=== PATIENT | female | born 1975 | race Caucasian/White ===

== ENCOUNTER 2025-04-04 13:02 | Emergency (ER) | payer MEDICAID, SELFPAY ==
[2025-04-04 13:10] VITALS: BP 122/78; PULSE 82; RESP 20; TEMP 36.8; O2SAT 99; BMI 25.7
[2025-04-04 14:18] LABS: HCG,Qualitative Serum Negative
[2025-04-04 14:29] LABS: Syphilis Reactive (Nonreactive)
[2025-04-04 14:30] LABS: MHATP/TP-PA* See Sep Rpt
--- NOTE | 2025-04-04 14:36 | PD.EDFMALE ---
ED Female Urogenital RME/HPI General Chief complaint: Urogenital-Female Stated complaint: VAGINAL PAIN/BLISTERS/ITCHING Time Seen by Provider: 04/04/25 13:11 Arrival date/time: 04/04/25 13:02 49-year-old female who is currently homeless presents with concerns for vaginal sores, itching, burning Limitations: no limitations Related Data Previous Rx's ?Medication ?Instructions ?Recorded acetaminophen 500 mg capsule 1,000 mg (2 x 500 mg) PO Q8HR PRN 04/04/25 pain #30 caps doxycycline hyclate 100 mg tablet 100 mg PO BID #14 tabs 04/04/25 Allergies Allergy/AdvReac Type Severity Reaction Status Date / Time aspirin Allergy Severe RASH Verified 11/25/23 15:05 quetiapine Allergy Severe BODY Verified 11/25/23 15:05 ANAY Review of Systems Review of Systems Systems Reviewed: All systems reviewed, normal except as documented Constitutional Constitutional: Reports system reviewed and no additional complaints, except as documented, Denies fever(s) and Denies headache(s) Eyes Eyes: Reports system reviewed and no additional complaints, except as documented and Denies blurry vision ENT Ears, Nose, Mouth, and Throat: Reports system reviewed and no additional complaints, except as documented, Denies headache(s), Denies nasal congestion and Denies nasal discharge Cardiovascular Cardiovascular: Reports system reviewed and no additional complaints, except as documented, Denies chest pain and Denies dyspnea Respiratory Respiratory: Reports system reviewed and no additional complaints, except as documented, Denies chest congestion, Denies cough and Denies dyspnea Gastrointestinal Gastrointestinal: Reports system reviewed and no additional complaints, except as documented and Denies abdominal pain Genitourinary Genitourinary: Reports system reviewed and no additional complaints, except as documented, Reports genital lesions, Reports genital pruritis, Denies hematuria, Denies vaginal discharge and Reports vaginal pruritus Integumentary/Breasts Skin/Breast: Reports system reviewed and no additional complaints, except as documented and Denies rash Neurologic Neurologic: Reports system reviewed and no additional complaints, except as documented, Reports as per HPI and Denies headache(s) Past Medical History Past Medical History CARDIAC: Negative Cardiac Disorders or Congestive Heart Failure RESPIRATORY: Negative Chronic Obstructive Pulmonary Disease (COPD) or Asthma GENITOURINARY: Positive Genitourinary Disorders; Negative Renal Disease REPRODUCTIVE: Positive Previous Pregnancies ENDOCRINE: Negative Diabetes Mellitus Type 1 or Diabetes Mellitus Type 2 HEMATOLOGIC: Negative Sickle Cell Disease OTHER HISTORY: Positive Hospitalization Surgical History SURGICAL: Positive Lumpectomy Social History SMOKING STATUS: Current every day smoker ED Exam General Limitations: Present no limitations General appearance: Present alert and in no apparent distress Head Head exam: Present atraumatic Eye Eye exam: Present normal appearance, PERRL and EOMI ENT ENT exam: Present normal exam, normal oropharynx and mucous membranes moist Neck Neck exam: Present normal inspection, full ROM and trachea midline Chest Chest inspection: Present normal inspection and symmetric chest wall rise Respiratory Respiratory exam: Present normal lung sounds bilaterally Cardiovascular Cardiovascular exam: Present regular rate, normal rhythm and normal heart sounds Abdominal Exam Abdominal exam: Present soft and normal bowel sounds Genitals Female CloseUp:  1. Multiple vaginal sores/chancre Extremities Exam Extremities exam: Present normal inspection and full ROM Back Exam Back exam: Present normal inspection and full ROM Neurological Exam Neurological exam: Present alert, oriented X3 and CN II-XII intact Psychiatric Psychiatric exam: Present normal affect and normal mood Skin Skin exam: Present warm, dry, intact and normal color Course Quality Measures none Orders Category Date Time Status Chlamydia/GC/TV - PCR Stat Lab 04/04/25 Ordered HCG,Qualitative Serum Stat Lab 04/04/25 13:34 Completed MHATP/TP-PA* Stat Lab 04/04/25 13:34 Received Syphilis Stat Lab 04/04/25 13:34 Completed HYDROcodone*/APAP 5/325 [[place] 5/325] Med 04/04/25 14:44 Discontinued 1 tab PO X1 ONE PEN G [place] (Bicillin LA) [Bicillin La Inj] Med 04/04/25 14:36 Discontinued 2.4 mmu IM X1 ONE Vital Signs Vital signs: Vital Signs Temperature 98.3 F 04/04/25 13:10 Pulse Rate 82 04/04/25 13:10 Respiratory Rate 20 04/04/25 13:10 Blood Pressure 122/78 04/04/25 13:10 Pulse Oximetry (%) 99 04/04/25 13:10 Oxygen Delivery Method Room Air 04/04/25 13:10 O2 saturation 99% on room air with normal limits Urogenital - Female MDM Narrative MDM Narrative:: 49-year-old female who is currently homeless presents with concerns for vaginal sores, itching, burning On exam patient well-appearing patient does not appear ill or toxic in no acute distress On exam patient has sores to the vaginal area/chancre I suspect patient has syphilis Patient checked for GC chlamydia which is still pending Patient for syphilis syphilis came back positive but suspected Patient given Bicillin here discharge home with doxycycline I did explain to the patient she must follow-up with the PCP in the next 24 to 48 hours for further STD testing and evaluation patient states understanding Patient data External records reviewed:: [facility] previous records Clinical information provided by:: patient Social determinants that could affect healthcare access:: housing Patient has the following chronic illnesses:: Homeless How is presenting disease/condition affected by chronic disease/condition?: caused by Evaluation data The following diagnostics were reviewed and interpreted by me:: lab results Lab and/or radiology exams considered but not ordered:: Labs obtained Interpretation Summary: Reviewed by me Medications / Prescriptions Medications or Prescriptions considered but not ordered:: Given Medication administrations:: Medication Administration History Discontinued Medications Hydrocodone Bitart/Acetaminophen (Hydrocodone/Apap 5/325 Tablet) 1 tab PO X1 ONE Stop: 04/04/25 14:45 Last Admin: 04/04/25 15:03 Dose: 1 tab Documented By: CHANTEL Penicillin G Benzathine (Pen G [place] (Bicillin La) 1.2 Mmu/2 Ml Syrg) 2.4 mmu IM X1 ONE Stop: 04/04/25 14:37 Last Admin: 04/04/25 14:55 Dose: 2.4 mmu Documented By: CHANTEL Given Consultations Consultation(s) initiated? (list below): No Diagnosis Urogenital Female Differential Diagnosis: urinary tract infection, bacterial vaginosis, vaginitis and cystitis Most likely diagnosis given after review of the tests above:: Syphilis Admission Indicated Admission indicated?: not indicated Admission Request Was there a request for admission?: No Disposition Plan Disposition Plan: Discharge Discharge Attestation Discharge Attestation: The patient and all family members were given an opportunity to ask questions and understood the discharge instructions. Discharge instructions specifically effects, indications for sooner follow up or return to the emergency department, and the expected course of current diagnosis. Patient condition: Stable Discharge Plan Plan Patient Disposition: HOME (Self Care) Discharge Disposition comment: Stable Prescriptions/Referrals Prescriptions/Med Rec: New acetaminophen 500 mg capsule 1,000 mg PO Q8HR PRN (Reason: pain) Qty: 30 0RF doxycycline hyclate 100 mg tablet 100 mg PO BID Qty: 14 0RF Referrals: Vani Santiago NP [Primary Care Provider] - 04/06/25 Problem List Clinical Impression: Syphilis Patient/Caregiver Discharge Instructions Education Materials: Syphilis Additional Instructions: Please follow up with your primary care doctor in the next 24-48hrs for any worsening symptoms return here immediately Print Language: Turkish Stand Alone Forms: Luna Award Info., Patient Portal Info Letter PA/RULING MACHINE FEEDER Supervising Physician PA/RULING MACHINE FEEDER Supervising Physician: Dr stack
[2025-04-04] MEDS: PEN G BENZ (Bicillin LA) 1.2 MMU/2 ML SYRG 2.4 MMU IM (14:55)
[2025-04-04] MEDS: HYDROcodone/APAP 5/325 TABLET 1 TAB PO (15:03)
== END 2025-04-04 15:26 | disposition home or self-care (01) ==
PROVIDERS: Nurse Practitioner Primary Care; Emergency Provider Family Medicine; PCP Nurse Practitioner Women's Health
DX: A53.9 Syphilis, unspecified (principal); Z59.00 Homelessness unspecified
CPT/HCPCS: 36415; 84703; 86780; 87491; 87591; 87661; 96372; 99283; J0561; A9270

== ENCOUNTER 2025-06-22 19:55 | Emergency (ER) | payer MEDICAID, SELFPAY ==
[2025-06-22 19:55] VITALS: BMI 15.4
== END 2025-06-23 12:00 | disposition left against medical advice (07) ==
DX: Z53.21 Procedure and treatment not carried out due to patient leaving prior to being seen by health care provider (principal)
CPT/HCPCS: 99283

== ENCOUNTER 2025-07-03 22:14 | Observation (INO) | payer MEDICAID, SELFPAY ==
--- NOTE | 2025-07-03 22:26 | XR_ITS ---
Examination: CT brain head without contrast. 2-D sagittal coronal reconstructions Date and time of exam:July 03, 2025, 10:35 PM, comparison April 01, 2024 Indications: Stroke alert, onset focal neurologic deficit, slurred speech beginning 3 hours ago CTDI: vol (mGy):46.9 DLP: (mGycm):856 Technique: Multiple CT axial sections of the brain have been obtained, 5 mm slice thickness. Contrast has not been administered. 2-D sagittal, coronal reconstructions have been obtained Low dose protocols were performed. One or more of the following dose reduction techniques were used; automated exposure control, adjustment of the mA and/or KV according to patient size, use of iterative reconstruction technique. Findings: No significant ventricular enlargement. Intra-axial or extra-axial hemorrhage density is not seen. No mass effect or midline shift Basal cisterns are not remarkable. Fourth ventricle is midline. Cranial vault intact. Impression: Negative for acute hemorrhage, mass effect or midline shift
--- NOTE | 2025-07-03 22:26 | XR_ITS ---
Examination: AP chest single view Technique one AP portable upright chest single view Date and time: July 03, 2025, 1102 hrs. Indications: Chest pain today. Findings: Mild opacity in the lingular segment obscuring detail left cardiac contour Right lung clear Mild prominence left ventricle Impression: Pneumonia lingular segment left upper lobe, consider aspiration pneumonia
--- NOTE | 2025-07-03 22:26 | EDNOTE_ITS ---
Neuro Symptoms Deficit-RME/HPI General Chief Complaint: Neuro Symptoms/Deficit Stated Complaint: SLURED SPEECH, NOT THINKING STRAIGHT Time Seen by Provider: 07/03/25 22:25 Arrival date/time: 07/03/25 22:14 RME / HPI RME / HPI Narrative: 50-year-old female patient with no past medical history, admits of smoking marijuana and doing meth, patient is homeless, last use of methamphetamine was 3 days ago, was brought in by boyfriend for evaluation regarding slurring with speech, not thinking straight, and dragging the right foot. Last well-known time about 3 hours ago. Patient also complained of headache. 2 days ago patient sustained ground-level fall also due to weakness to the right of lower extremity that resolved on its own. Patient denies any neck pain. Denies any chest pain back pain or abdominal pain. No fever. Currently patient is GCS 15. Related Data Previous Rx's ?Medication ?Instructions ?Recorded acetaminophen 500 mg capsule 1,000 mg (2 x 500 mg) PO Q8HR PRN 04/04/25 pain #30 caps doxycycline hyclate 100 mg tablet 100 mg PO BID #14 ta bs 04/04/25 Allergies Allergy/AdvReac Type Severity Reaction Status Date / Time aspirin Allergy Severe RASH Verified 06/22/25 19:58 quetiapine Allergy Severe BODY Verified 06/22/25 19:58 ANAY Review of Systems Review of Systems Narrative Review of Systems: Review of system reviewed and within normal limits except mentioned in HPI ED Exam Narrative Physical exam: VITAL SIGNS: Reviewed. GENERAL APPEARANCE: Alert and interactive, follows commands, no acute distress, HEAD AND FACE: Non-traumatic. Right-sided mild facial asymmetry ENT: PERRL, pink conjunctivitis, eyelid no trauma, Mucous membrane moist. NECK: Supple, nontender, no nuchal rigidity. CHEST: No tenderness, no crepitus, no paradoxical movement, no retractions. LUNGS: Clear, well ventilated, symmetric, no rales, no wheezing, no ronchi, no stridor, good breath sounds bilaterally. HEART: Regular rate, regular rhythm, no murmur, no gallops. ABDOMEN: Soft, positive bowel sounds, nondistended, no guarding, nontender, no rebound, no masses, RECTAL: Deferred. GENITAL: Deferred. NEUROLOGICAL: Gross motor function intact sensory function intact, Appropriate for age. MUSCULOSKELETAL: low back nontender, full range of motion. EXTREMITIES: Lower extremity drifting on the right, no drifting noted on the upper extremity handgrip equal and full bilateral SKIN: Color pink, dry, no rash, no lacerations, no abrasions, no contusions. LYMPHATICS: Deferred. Course Quality Measures none Orders Category Date Time Status Bedside Blood Glucose NOW Care 07/03/25 22:26 Active COVID-19 Screening Questionnaire NOW Care 07/03/25 23:50 Active Cane Flume Feeding Machine Operator NOW Care 07/03/25 22:26 Active Continuous Pulse Oximetry NOW Care 07/03/25 22:26 Completed Decision to Admit X1 Care 07/03/25 23:50 Completed EKG (ED ONLY) *Do not use* NOW Care 07/03/25 22:26 Completed In and Out Catheter NEEDED Care 07/03/25 22:26 Active Insert IV NOW Care 07/03/25 22:26 Active NIH Stroke Scale now Care 07/03/25 22:26 Active NPO NOW Care 07/03/25 22:26 Active Nurse Swallow Screen x1 Care 07/03/25 22:26 Active Consult to Neurology / Tele-Neurology Routine Cons 07/03/25 22:[address] angio stroke protocol Stat Exams 07/03/25 22:[address] stroke protocol Stat Exams 07/03/25 22:26 Completed EKG (ED Only) Stat Exams 07/03/25 22:26 Ordered XR chest 1V portable Stat Exams 07/03/25 22:26 Completed CBC Stat Lab 07/03/25 22:24 Completed Comprehensive Metabolic Panel Stat Lab 07/03/25 22:24 Completed Drug Screen,Urine Stat Lab 07/04/25 00:41 Completed HCG Titer if Positive Stat Lab 07/03/25 22:24 Completed Magnesium Stat Lab 07/03/25 22:24 Completed Partial Thromboplastin Time Stat Lab 07/03/25 22:24 Completed Prothrombin Time with INR Stat Lab 07/03/25 22:24 Completed Troponin I Stat Lab 07/03/25 22:24 Completed Urinalysis, C/S if Indicated Stat Lab 07/04/25 00:41 Completed Urine Culture Stat Lab 07/04/25 00:41 Received Clopidogrel [Plavix] Med 07/03/25 23:01 Discontinued 300 mg PO X1 ONE Labetalol IV [Trandate IV] Med 07/03/25 22:26 Discontinued 10 mg IVP Q15M PRN Ondansetron Inj [Zofran Inj] Med 07/03/25 22:26 Active 4 mg IVP Q4HR PRN Oxygen Delivery NOW RT 07/03/25 22:26 Active Vital Signs Vital signs: Vital Signs Temperature 98.2 F 07/03/25 22:31 Pulse Rate 89 07/03/25 22:31 Respiratory Rate 18 07/03/25 22:31 Blood Pressure 140/73 H 07/03/25 22:31 Pulse Oximetry (%) 98 07/03/25 22:31 Oxygen Delivery Method Room Air 07/03/25 22:31 Neuro Symptoms / Deficit MDM Narrative MDM Narrative:: 50-year-old female patient with no past medical history, admits of smoking marijuana and doing meth, patient is homeless, last use of methamphetamine was 3 days ago, was brought in by boyfriend for evaluation regarding slurring with speech, not thinking straight, and dragging the right foot. Last well-known time about 3 hours ago. Patient also complained of headache. 2 days ago patient sustained ground-level fall also due to weakness to the right of lower extremity that resolved on its own. Patient denies any neck pain. Denies any chest pain back pain or abdominal pain. No fever. Currently patient is GCS 15. NIH score 6 I spoke with teleneurology, who advised to give patient 300 mg of Plavix x 1 p.o. Patient received Plavix 300 mg p.o. x 1 patient is not a tPA candidate at this due to last well-known time more than [address] of the head and neck, came back unremarkable CT of the head came back unremarkable laboratory workup all came out unremarkable. Discussed with the patient including admission for stroke workup. Agrees with the plan. Spoke with hospitalist, who admitted the patient. Patient data External records reviewed:: None Clinical information provided by:: patient Social determinants that could affect healthcare access:: substance use (None) Patient has the following chronic illnesses:: Homelessness, meth amphetamine abuse, marijuana abuse How is presenting disease/condition affected by chronic disease/condition?: exacerbated by Evaluation data The following diagnostics were reviewed and interpreted by me:: lab results, radiology exam(s) and EKG tracing(s) Lab and/or radiology exams considered but not ordered:: None Interpretation Summary: See results and MDM Medications / Prescriptions Medications or Prescriptions considered but not ordered:: None Medication administrations:: Medication Administration History Acetaminophen (Acetaminophen 325 Mg Tablet) 650 mg PO Q6H PRN PRN Reason: Fever >101.5 Stop: 08/03/25 00:55 Atorvastatin Calcium (Atorvastatin Calcium 20 Mg Tablet) 40 mg PO HS [facility] Stop: 08/03/25 20:59 Clopidogrel Bisulfate (Clopidogrel Bisulfate 75 Mg Tablet) 75 mg PO QDAY [facility] Stop: 08/03/25 08:59 Last Admin: 07/04/25 08:32 Dose: 75 mg Documented By: MARLENE Enoxaparin Sodium (Enoxaparin Sod Inj 40 Mg/0.4 Ml Syringe) 40 mg SC QDAY NAVEEN Stop: 07/18/25 08:59 Last Admin: 07/04/25 08:32 Dose: 40 mg Documented By: MARLENE Hydralazine HCl (Hydralazine Inj 20 Mg/Ml Vial) 10 mg IVP Q4HR PRN PRN Reason: SBP>220 Stop: 08/03/25 01:02 Magnesium Hydroxide (Milk Of Magnesia Susp 30 Ml Udc) 30 ml PO QDAY PRN; Protocol PRN Reason: CONSTIPATION Stop: 08/03/25 00:55 Ondansetron HCl (Ondansetron Inj 2 Mg/Ml Inj 2 Ml) 4 mg IVP Q4HR PRN PRN Reason: NAUSEA OR VOMITING Stop: 08/02/25 22:25 Discontinued Medications Clopidogrel Bisulfate (Clopidogrel Bisulfate 75 Mg Tablet) 300 mg PO X1 ONE Stop: 07/03/25 23:02 Last Admin: 07/03/25 23:20 Dose: 300 mg Documented By: JULIET Labetalol HCl (Labetalol Inj 5 Mg/Ml Vial 20 Ml) 10 mg IVP Q15M PRN PRN Reason: HYPER Potassium Chloride (Potassium Chloride 20 Meq Tabcr) 40 meq PO X1 ONE Stop: 07/04/25 07:56 Last Admin: 07/04/25 08:32 Dose: 40 meq Documented By: MARLENE Potassium Chloride (Potassium Chloride 20 Meq Tabcr) 40 meq PO X1 ONE Stop: 07/04/25 09:01 Last Admin: 07/04/25 09:56 Dose: 40 meq Documented By: MARLENE See MDM Consultations Consultation(s) initiated? (list below): Yes Diagnosis Neuro Differential Diagnosis: subarachnoid hemorrhage and cerebrovascular accident Most likely diagnosis given after review of the tests above:: Strokelike symptoms Admission Indicated Admission indicated?: indicated Admission Request Was there a request for admission?: Yes Admission Attestation Admission request attestation: Discussed case with [] from Hospitalist service regarding admission. Discussed patients ED course, exam findings, labs, and radiology results. The Hospitalist [agrees,declines] to accept the patient for admission. Disposition Plan Disposition Plan: Admit Discharge Plan Plan Patient Disposition: Admit Acute Care w/in Hospital Discharge Disposition comment: Stable Problem List Clinical Impression: Stroke-like symptom
--- NOTE | 2025-07-03 22:26 | XR_ITS ---
Examination: CTA carotids with intravenous contrast CTA brain, head with intravenous contrast. 2-D sagittal, coronal reconstructions. 3-D reconstructions. Exam date and time: July 03, 2025 10:37 PM Indications: Stroke alert, onset slurred speech focal neurologic deficit today CTDI: vol (mGy) 12.80 DLP: (mGycm) 470 Technique: Multiple CTA axial brain, head carotid images post intravenous contrast injection 75 cc, [id number]. 2-D sagittal, coronal reconstructions. 3-D reconstructions, 3-D post processing including vascular maximum intensity projection images. Low dose protocols were performed. One or more of the following dose reduction techniques were used; automated exposure control, adjustment of the mA and/or KV according to patient size, use of iterative reconstruction technique. Findings: No significant common carotid carotid bifurcation or internal carotid artery stenoses Codominant vertebral arteries with no critical stenoses No cerebral large vessel arterial occlusions or thrombus Impression: No significant neck arterial stenoses No cerebral large vessel arterial occlusions or thrombus
[2025-07-03 22:31] VITALS: BP 140/73; PULSE 89; RESP 18; TEMP 36.8; O2SAT 98
[2025-07-03 22:34] VITALS: PULSE 81
[2025-07-03 22:39] LABS: Basophils # (Auto) 0.1 Thou/mm3 (0.0-0.2); Basophils % (Auto) 1 % (0-2.5); Eosinophils # (Auto) 0.2 Thou/mm3 (0.0-0.5); Eosinophils % (Auto) 2 % (0-10); Hematocrit 38.9 % (36.0-46.0); Hemoglobin 13.0 g/dL (12.0-16.0); Immature Granulocytes Auto 0.05 Thou/mm3 (0.00-0.00); Lymphocytes # (Auto) 4.6 Thou/mm3 (1.0-4.8); Lymphocytes % (Auto) 42 % (10-50); Mean Corpuscular HGB Conc 33.4 g/dl (31.0-37.0); Mean Corpuscular Hemoglobin 31.0 pg (25.0-35.0); Mean Corpuscular Volume 93 fL (80-100); Monocytes # (Auto) 0.9 Thou/mm3 (0.0-0.8); Monocytes % (Auto) 8 % (0-12); Neutrophils # (Auto) 5.1 Thou/mm3 (1.8-7.7); Neutrophils % (Auto) 47 % (37-80); Nucleated Red Blood Cell # 0.00 Thou/mm3 (0.00-0.00); Nucleated Red Blood Cell % 0 /100 WBC (0); Platelet Count 323 Thou/mm3 (140-440); RDW Standard Deviation 41.9 fL (36.4-46.3); Red Blood Count 4.19 Miln/mm3 (4.00-5.20); White Blood Count 10.9 Thou/mm3 (3.6-11.0)
[2025-07-03 22:54] LABS: INR 0.9 (0.9-1.3); Partial Thromboplastin Time 26.2 Seconds (22.0-36.0); Prothrombin Time 10.3 Seconds (9.0-12.2)
[2025-07-03 22:58] LABS: Alanine Aminotransferase 28 U/L (10-49); Albumin, Serum 4.6 gm/dL (3.5-5.0); Albumin/Globulin Ratio 2.0 (1.2-2.2); Alkaline Phosphatase 65 U/L (46-116); Anion Gap 11 (7-16); Aspartate Amino Transferase 30 U/L (0-34); BUN/Creatinine Ratio 15 Ratio (12-20); Bilirubin,Total 0.4 mg/dL (0.3-1.2); Blood Urea Nitrogen 17 mg/dL (9-23); Calcium 9.9 mg/dL (8.3-10.6); Calcium (Corrected) 9.9 mg/dL (8.5-10.1); Carbon Dioxide 29.3 mMol/L (20.0-31.0); Chloride 106 mMol/L (98-107); Creatinine (Component) 1.1 mg/dL (0.6-1.3); Globulin 2.3 gm/dL (2.3-3.5); Glucose 124 mg/dL (74-106); Magnesium 2.0 mg/dL (1.6-2.6); Osmolality,Calculated 293 (275-295); Potassium 3.4 mMol/L (3.4-5.1); Sodium 146 mMol/L (136-145); Total Protein 6.9 gm/dL (5.7-8.2); Troponin I < 0.020 ng/mL (0.0-0.045); eGFR > 60 See Note
[2025-07-03 22:59] VITALS: PULSE 80; RESP 17; RESP 98; BMI 22.2
--- NOTE | 2025-07-03 22:59 | PD.TNEURO ---
Tele Neuro Consultation Consultation Date 07/03/25 Most Recent Vital Signs Last Vital Signs Temp 98.2 F 07/03/25 22:31 Pulse 81 07/03/25 22:34 Resp 18 07/03/25 22:31 BP 140/73 H 07/03/25 22:31 Pulse Ox 98 07/03/25 22:31 O2 Del Method Room Air 07/03/25 22:31 Laboratory-Coagulation Panel PT 10.3 Seconds (9.0-12.2) 07/03/25 22:24 INR 0.9 (0.9-1.3) 07/03/25 22:24 APTT 26.2 Seconds (22.0-36.0) 07/03/25 22:24 Consultation Narrative [facility] TeleNeurology Consult Services Patient Name:???Oksana Elias Date of :???1975 Identification Number:??? Date of Service:???07/03/2025 22:20:35 Diagnosis:?I63.89 - Cerebrovascular accident (CVA) due to other mechanism ([facility]) Impression: ?This is a 50 y/o RH woman who 3 days ago had a fall, did not hit her head or lose consciousness, and at that time noted that her she couldn't feel her right leg. This lasted overnight into yesterday morning and she thinks she got her feeling back before losing it again in the evening yesterday. She fell again today about 4 hours ago and thinks that her dogs made her fall but she couldn't move her right leg to get back up. She had her boyfriend bring her in to the ED. She also reports some slurred speech. She has not noticed any vision change. She is unhoused, smokes tobacco and marijuana daily, does not drink alcohol, and used crystal meth last 3 days ago in the morning. ? ?#1 Acute ischemic stroke ?#2 Right hemisensory deficit ?#3 Right upper quadrantanopia ?#4 Right lower extremity monoplegia ? ?Please admit with continuous cardiac monitoring. ?NPO pending a bedside swallow study. ?Bolus with Clopidogrel 300 mg bolus x1 and continue Clopidogrel 75 mg daily. ?Obtain a routine MRI of the brain without gadolinium. ?Obtain a TTE with bubble study. ?Obtain a lipid panel and treat with a statin to LDL < 70. ?Obtain a Hgb A1C and target interventions to A1C < 7. ? Our recommendations are outlined below. Recommendations: ? Stroke/Telemetry Floor ? Neuro Checks (Q4) ? Bedside Swallow Eval ? DVT Prophylaxis ? IV Fluids, Normal Saline ? Head of Bed 30 Degrees ? Euglycemia and Avoid Hyperthermia (PRN Acetaminophen) ? Antihypertensives PRN if Blood pressure is greater than 220/120 or there is a concern for End organ damage/contraindications for permissive HTN. If blood pressure is greater than 220/120 give labetalol PO or IV or Vasotec IV with a goal of 15% reduction in BP during the first 24 hours. Sign Out: ? Discussed with Emergency Department Provider Advanced Imaging: Advanced imaging has been ordered. Results pending. Metrics: Last Known Well: 07/03/2025 22:45:01 Dispatch Time: 07/03/2025 22:20:35 Arrival Time: 07/03/2025 22:14:00 Initial Response Time: 07/03/2025 22:33:15Symptoms: right foot numbness and weakness. Initial patient interaction: 07/03/2025 22:41:50 NIHSS Assessment Completed: 07/03/2025 22:36:50Patient is not a candidate for Thrombolytic. Thrombolytic Medical Decision: 07/03/2025 22:44:53Patient was not deemed candidate for Thrombolytic because of following reasons: LKW outside 4.[address] Head: I personally reviewed all the CT images that were available to me and it showed: no hemorrhage, hyperdense vessel sign, or definite acute ischemic changes. Primary Provider Notified of Diagnostic Impression and Management Plan on: 07/03/2025 22:59:21 History of Present Illness:Patient is a 50 year old Female. Patient was brought by private transportation with symptoms of right foot numbness and weakness. This is a 50 y/o RH woman who 3 days ago had a fall, did not hit her head or lose consciousness, and at that time noted that her she couldn't feel her right leg. This lasted overnight into yesterday morning and she thinks she got her feeling back before losing it again in the evening yesterday. She fell again today about 4 hours ago and thinks that her dogs made her fall but she couldn't move her right leg to get back up. She had her boyfriend bring her in to the ED. She also reports some slurred speech. She has not noticed any vision change. She is unhoused, smokes tobacco and marijuana daily, does not drink alcohol, and used crystal meth last 3 days ago in the morning. Past Medical History: ?There is no history of Hypertension ?There is no history of Diabetes Mellitus ?There is no history of Hyperlipidemia ?There is no history of Stroke ?There is no history of Seizures Medications: No Anticoagulant use? No Antiplatelet use Reviewed EMR for current medications Allergies:? Reviewed Description:?aspirin Social History: Smoking: Yes Alcohol Use: No Drug Use: Yes Family History: There is no family history of premature cerebrovascular disease pertinent to this consultation ROS : 14 Points Review of Systems was performed and was negative except mentioned in HPI. Past Surgical History: There Is No Surgical History Contributory To Today?s Visit Examination: BP(140/73),?Pulse(89),?Blood Glucose(126) 1A: Level of Consciousness - Alert; keenly responsive?+ 0 1B: Ask Month and Age - Both Questions Right?+ 0 1C: Blink Eyes & Squeeze Hands - Performs Both Tasks?+ 0 2: Test Horizontal Extraocular Movements - Normal?+ 0 3: Test Visual Romero - Partial Hemianopia?+ 1 4: Test Facial Palsy (Use Grimace if Obtunded) - Normal symmetry?+ 0 5A: Test Left Arm Motor Drift - No Drift for 10 Seconds?+ 0 5B: Test Right Arm Motor Drift - No Drift for 10 Seconds?+ 0 6A: Test Left Leg Motor Drift - No Drift for 5 Seconds?+ 0 6B: Test Right Leg Motor Drift - No Movement?+ 4 7: Test Limb Ataxia (FNF/Heel-Arredondo) - No Ataxia?+ 0 8: Test Sensation - Mild-Moderate Loss: Less Sharp/More Dull?+ 1 9: Test Language/Aphasia - Normal; No aphasia?+ 0 10: Test Dysarthria - Normal?+ 0 11: Test Extinction/Inattention - No abnormality?+ 0 NIHSS Score:?6 NIHSS Free Text :?right upper quadrantan Pre-Morbid Modified Greenwood Scale: 0 Points = No symptoms at all Spoke with :?ED physician This consult was conducted in real time using interactive audio and video technology. Patient was informed of the technology being used for this visit and agreed to proceed. Patient located in hospital and provider located at home/office setting. Patient is being evaluated for possible acute neurologic impairment and high probability of imminent or life-threatening deterioration. I spent total of 35 minutes providing care to this patient, including time for face to face visit via telemedicine, review of medical records, imaging studies and discussion of findings with providers, the patient and/or family. Dr Melly Reese [facility] For Inpatient follow-up with [facility] physician please call [facility] at . As we are not an outpatient service for any post hospital discharge needs please contact the hospital for assistance. If you have any questions for the [facility] physicians or need to reconsult for clinical or diagnostic changes please contact us via [facility] at . Signature :Yomi Reese
[2025-07-03] MEDS: CLOPIDOGREL BISULFATE 75 MG TABLET 300 MG PO (23:20)
--- NOTE | 2025-07-03 23:52 | PD.HHHP ---
Documentation for date of: 07/03/25 HPI - Hospitalist History of Present Illness History of Present Illness: Focal lower extremity weakness and speech difficulty. History of present illness: 50-year-old female patient with PMHx of meth/cocaine use, and homelessness brought in by boyfriend for evaluation of fogginess and right lower extremity weakness. Patient reports a fall by [place] 3 days ago while walking her dogs which resulted in significant pain that gradually improved and resolved, reports a second ground-level fall that resulted in significant right lower extremity weakness with no sensory loss. Patient denies any fever, chills, chest pain, shortness of breath, GI/urinary symptoms but complains of headache, along with continuation of fogginess causing her hard time finding words,Patient also denies any symptoms of neck/back pain. Stroke alert initiated by ED along with teleneuro consults, head CT/CTA of head and neck negative for mass, hemorrhage or stenosis. Patient is hemodynamically stable with normal labs, CXR report possible aspiration pneumonia, patient was given 1 dose of clopidogrel 300 mg at ED. Review of Systems Review of Systems Systems Reviewed: All systems reviewed, normal except as documented Past Medical History Past Medical History CARDIAC: Negative Cardiac Disorders or Congestive Heart Failure RESPIRATORY: Negative Chronic Obstructive Pulmonary Disease (COPD) or Asthma GENITOURINARY: Positive Genitourinary Disorders; Negative Renal Disease REPRODUCTIVE: Positive Previous Pregnancies ENDOCRINE: Negative Diabetes Mellitus Type 1 or Diabetes Mellitus Type 2 HEMATOLOGIC: Negative Sickle Cell Disease OTHER HISTORY: Positive Hospitalization Family History OTHER FAMILY HX: No significant family history Surgical History SURGICAL: Positive Lumpectomy Social History SMOKING STATUS: Current every day smoker SUBSTANCE USE: crack/cocaine and methamphetamine Meds Home Medications and Allergies Allergies Allergy/AdvReac Type Severity Reaction Status Date / Time aspirin Allergy Severe RASH Verified 06/22/25 19:58 quetiapine Allergy Severe BODY Verified 06/22/25 19:58 SHAKES Exam Vital Signs Temp Pulse Resp BP Pulse Ox O2 Del Method 98.2 F 80 17 140/73 H 98 Room Air 07/03/25 22:31 07/03/25 22:59 07/03/25 22:59 07/03/25 22:31 07/03/25 22:31 07/03/25 22:31 Narrative General: Dishelved, in no distress, normal mood and affect. HEENT: Normocephalic, atraumatic, anicteric, EOM intact, PERRLA Heart: RRR, no murmur or gallop. Lungs: Clear to auscultation with equal breath sounds bilaterally. Abdomen: Bowel sounds normal, no tenderness or guarding, no CVA tenderness Extremities: Sensation, circulation, motor function intact and equal in upper extremities and in LLE. Sensation/circulation intact and RLE with normal DTR, with complete lack of motor strength. Neurologic: Alert and oriented to name, place and date of , CN II-XII intact, DTRs normal Results - Hospitalist Labs Diagrams: 07/03/25 22:24 07/03/25 22:24 Labs: Short CBC 07/03/25 Range/Units 22:24 WBC 10.9 (3.6-11.0) Thou/mm3 Hgb 13.0 (12.0-16.0) g/dL Hct 38.9 (36.0-46.0) % Plt Count 323 (140-440) Thou/mm3 BMP 07/03/25 22:24 Sodium 146 H Potassium 3.4 Chloride 106 Carbon Dioxide 29.3 BUN 17 Creatinine 1.1 Glucose 124 H Calcium 9.9 Cardiac Enzymes 07/03/25 Range/Units 22:24 Troponin I < 0.020 (0.0-0.045) ng/mL Liver Function 07/03/25 Range/Units 22:24 Total Bilirubin 0.4 (0.3-1.2) mg/dL AST 30 (0-34) U/L ALT 28 (10-49) U/L Alkaline Phosphatase 65 (46-116) U/L Albumin 4.6 (3.5-5.0) gm/dL Assessment & Plan -Hospitalist Additional Assessment 50-year-old female patient with PMHx of meth/cocaine use, and homelessness brought in by boyfriend for evaluation of fogginess and right lower extremity weakness for 6 hours, patient was admitted for stroke rule out per neurorecommendation. ? #CVA workup #RLE monoplegia Patient admitted to telemetry with continuous cardiac monitoring Patient started on daily clopidogrel 75 mg and atorvastatin 40 mg. Neuro Checks every 4 Bedside Swallow Eval DVT Prophylaxis Head of Bed 30 Degrees Maintain glucose 140?180 and Avoid Hyperthermia (PRN Acetaminophen) Permissive hypertension, hydralazine/labetalol as needed for BP>220/120 F/U UToX F/U A1c, TSH F/U MRI head without contrast In-house neurology consulted, recommendations appreciated #Methamphetamine use #Marijuana use #Tobacco use Patient counseled extensively regarding recreational drug use. Reports feeling ready to quit. Referral to social sciences professor. #Pneumonia CXR read noted for possible aspiration pneumonia. Patient lacks symptoms/signs of pneumonia. Continue to monitor patient's condition and initiate further treatment as warranted Health maintenance: DVT prophylaxis: Enoxaparin 40 mg SC daily Diet: Cardiac IV access: PIV CODE STATUS: Full code Quality Measures Quality Measures stroke Suspected type of Stroke: Unknown at this time Tenecteplase given: Reason(s) Tenecteplase not given: Outside the time window and Unable to determine eligibility not given Rehab services: PT evaluation ordered and Speech Language Pathology eval ordered VTE Prophylaxis: pharmaceutical Antithrombotic by day 2:: ordered Statin ordered: <75 y/o high intensity dose Anticoagulation ordered for A-fib or flutter (current or hx): not indicated
[2025-07-04] VITALS (7 sets, daily range): BP systolic 105–135; BP diastolic 67–85; PULSE 58–76; RESP 12–21; TEMP 35.9–36.8; O2SAT 96–99; BMI 22.2
--- NOTE | 2025-07-04 | XR_ITS ---
Examination: MRI brain without intravenous contrast. Date and time of exam: July 04, 2025 0702 hrs. Indications: Stroke alert yesterday, onset focal neurologic deficit, confusion slurred speech altered mental status Technique: Multiple axial and sagittal images of the brain obtained. Siemens high-resolution 1.5 Kimberly short bore scanners utilized. Sagittal sections, T1-weighted, TR 500, TE 14, are performed. Axial sections proton-density and T2-weighted have been obtained. Inversion recovery axial images, TR 9, 260, TE 111, TI 2500. Diffusion weighted images, axial sections, TR 4800, TE 128, B value 1000 Axial sections, ADC map, TR 4800, TE 128 Findings: Enlargement of the sella turcica is not present. The optic chiasm and infundibular are not remarkable. Prepontine and interpeduncular cisterns are not enlarged. There is no localized enlargement of the medulla or isidro. Fourth ventricle and cerebellar tonsils appear normal in position. No subacute area of hemorrhage density is seen. Mass in the cerebellopontine angle region is not evident. Globes symmetrical. Orbital musculature including medial lateral rectus muscles do not exhibit abnormality. Diffusion-weighted images demonstrate no focus of restricted diffusion. Increased white matter signal not seen Mass effect upon the ventricular system is not identified. Impression: Negative for acute hemorrhage mass effect or midline shift No acute infarct. No MR findings diagnostic for demyelinating disease
--- NOTE | 2025-07-04 00:06 | PC.NURSE ---
PT ARRIVED TO ED MEG. PT STATES THAT APPROX 3 DAYS SHE TRIPPED AND FELL. EVER SENSE THE FALL SHE NOTICED RIGHT FOOT NUMBNESS. PT STATES THAT THE FOOT GOT BETTER SINCE YESTERDAY. TODAY PT STATES THAT SHE TRIPPED OVER DOG AND DEVELOPED THE RIGHT LEG WEAKNESS. PT STATES THAT SHE IS UNABLE TO MOVE RIGHT LEG AND STATES MY BRAIN ISNT ABLE TO LEFT LEG . TELE NEURO DR. MIRIAM PAREDES EVALUATED PT NIHSS COMPLETED AND CHARTED
[2025-07-04 00:12] LABS: HCG Titer if Positive Negative
--- NOTE | 2025-07-04 00:58 | ECHO_ITS ---
Transthoracic Echo Report Ht (in): 64 Wt (lb): 129 Exam Location: Echo Lab Status: Preadmit Certified Procedural Coder: Saumya Vega Indications: Procedure Performed: BP: 108 / 71 HR: 70 Technical Quality: Poor MEASUREMENTS (Male / Female) Normal Values 2D ECHO LV Diastolic Diameter PLAX 4.7 cm 4.2 - 5.9 / 3.9 - 5.3 cm LV Systolic Diameter PLAX 3.0 cm IVS Diastolic Thickness 0.7 cm 0.6 - 1.0 / 0.6 - 0.9 cm LVPW Diastolic Thickness 0.9 cm 0.6 - 1.0 / 0.6 - 0.9 cm LV Relative Wall Thickness 0.3 LVOT Diameter 2.1 cm Aortic Root Diameter 2.9 cm LA Systolic Diameter LX 3.2 cm 3.0 - 4.0 / 2.7 - 3.8 cm LV Ejection Fraction MOD 4C 53.8 % LV Cardiac Index MOD 4C 2174.7 cm?/min?m? LV Ejection Fraction 4C AL 57.5 % LV Cardiac Index 4C AL 2417.7 cm?/min?m? LA Volume Index 20.8 cm?/m? 16 - 28 cm?/m? M-MODE Aortic Root Diameter MM 2.6 cm LA Systolic Diameter MM 3.6 cm LA Ao Ratio MM 1.4 AV Cusp Separation MM 2.1 cm DOPPLER AV Peak Velocity 86.1 cm/s AV Peak Gradient 3.0 mmHg AV Mean Gradient 2.0 mmHg AV Velocity Time Integral 18.7 cm LVOT Peak Velocity 68.0 cm/s LVOT Peak Gradient 1.8 mmHg LVOT Velocity Time Integral 17.9 cm LVOT Cardiac Index 2664.6 cm?/min?m? AV Area Cont Eq vti 3.3 cm? AV Area Cont Eq pk 2.7 cm? MV Area PHT 3.3 cm? Mitral E Point Velocity 67.4 cm/s Mitral A Point Velocity 66.0 cm/s Mitral E to A Ratio 1.0 LV E' Lateral Velocity 7.9 cm/s Mitral E to LV E' Lateral Ratio 8.5 LV E' Septal Velocity 7.2 cm/s Mitral E to LV E' Septal Ratio 9.4 PV Peak Velocity 88.2 cm/s PV Peak Gradient 3.1 mmHg FINDINGS Left Ventricle Normal left ventricular size, wall thickness, systolic function with no obvious regional wall motion abnormalities. There is grade I diastolic dysfunction of the left ventricle (impaired relaxation pattern). The ejection fraction is visually estimated at 55-60 %. Right Ventricle The right ventricle is normal in size and systolic function. Left Atrium The left atrium is normal by two-dimensional, color flow and Doppler imaging with no structural abnormalities, no thrombus formation present. Right Atrium The right atrium is normal by two-dimensional imaging, color flow and Doppler imaging with no structural abnormalities, no thrombus formation present. Atrial Septum The interatrial septum appears normal with no evidence of a shunt. Aorta The aorta is normal by two-dimensional, color flow and Doppler interrogation. Mitral Valve The mitral valve is normal by two-dimensional, color flow and Doppler interrogation. There is no significant mitral valve regurgitation, stenosis or prolapse. Aortic Valve The aortic valve is trileaflet and normal by two-dimensional, color flow and Doppler interrogation. There is no significant aortic valve regurgitation. Tricuspid Valve The tricuspid valve is normal by two-dimensional, color flow and Doppler interrogation. There is trace tricuspid valve regurgitation. Pulmonic Valve The pulmonic valve is not well visualized. There is no significant pulmonic valve regurgitation. Vessels The pulmonary artery appears normal. The inferior vena cava pulmonary and hepatic veins appear normal. Pericardium The pericardium is normal by two-dimensional imaging. There is no significant pericardial effusion. CONCLUSIONS Indication: stroke with bubble study. Possible PFO cannot be excluded based on this bubble study. Will need a DEVON to confirm and rule out PFO/ASD o LA or GURPREET if clinical suspicion high for a stroke. Normal LV size and wall thickness. Estimated EF at 55-60 %. Grade I diastolic dysfunction. Normal RV size and systolic function. Trace TR. and MR. No pericardial effusion and IVC normal Jaziel Padilla (Electronically Signed) Final Date: 05 July 2025 16:08
[2025-07-04 01:02] LABS: Collection Type, Urine Clean Catch
[2025-07-04 01:23] LABS: Amphetamine/Methamp Scrn,U Positive (Negative); Barbiturate Screen,Urine Negative (Negative); Benzodiazepines Screen,Urine Negative (Negative); Benzoylecgonine Screen, Ur Negative (Negative); Fentanyl Screen,Urine Negative (Negative); Opiate Screen,Urine Negative (Negative); THC Screen,Urine Positive (Negative)
[2025-07-04 01:35] LABS: Bilirubin,Urine Negative (Negative); Blood,Urine Negative (Negative); Clarity,Urine Clear (Clear/Hazy); Color,Urine Lt-Yellow (Lt Yel-Yel); Glucose, Urine Negative (Negative); Ketones,Urine Negative (Negative); Leukocyte Esterase,Urine Positive (Negative); Nitrite,Urine Negative (Negative); PH,Urine 6.0 (5.0-7.0); Protein,Urine Trace (Neg - Trace); RBC,Urine 3 /hpf (0-3); Squamous Epithelial Cell,Urine 2 /hpf (0-5); Urobilinogen,Urine Negative mg/dL (0.0-1.0); WBC,Urine 47 /hpf (0-5)
[2025-07-04 01:38] LABS: Culture Indicated,Urine Yes; Specific Gravity,Urine 1.015 (1.001-1.035)
[2025-07-04 05:46] LABS: Basophils # (Auto) 0.1 Thou/mm3 (0.0-0.2); Basophils % (Auto) 1 % (0-2.5); Eosinophils # (Auto) 0.3 Thou/mm3 (0.0-0.5); Eosinophils % (Auto) 3 % (0-10); Hematocrit 38.9 % (36.0-46.0); Hemoglobin 13.0 g/dL (12.0-16.0); Immature Granulocytes Auto 0.02 Thou/mm3 (0.00-0.00); Lymphocytes # (Auto) 4.4 Thou/mm3 (1.0-4.8); Lymphocytes % (Auto) 52 % (10-50); Mean Corpuscular HGB Conc 33.4 g/dl (31.0-37.0); Mean Corpuscular Hemoglobin 31.3 pg (25.0-35.0); Mean Corpuscular Volume 94 fL (80-100); Monocytes # (Auto) 0.7 Thou/mm3 (0.0-0.8); Monocytes % (Auto) 9 % (0-12); Neutrophils # (Auto) 3.1 Thou/mm3 (1.8-7.7); Neutrophils % (Auto) 36 % (37-80); Nucleated Red Blood Cell # 0.00 Thou/mm3 (0.00-0.00); Nucleated Red Blood Cell % 0 /100 WBC (0); Platelet Count 266 Thou/mm3 (140-440); RDW Standard Deviation 43.3 fL (36.4-46.3); Red Blood Count 4.15 Miln/mm3 (4.00-5.20); White Blood Count 8.6 Thou/mm3 (3.6-11.0)
[2025-07-04 05:59] LABS: Anion Gap 11 (7-16); BUN/Creatinine Ratio 10 Ratio (12-20); Blood Urea Nitrogen 9 mg/dL (9-23); Calcium 9.2 mg/dL (8.3-10.6); Carbon Dioxide 27.0 mMol/L (20.0-31.0); Cardiac Risk Estimate 5.1 RATIO (3.7-5.6); Chloride 105 mMol/L (98-107); Cholesterol 203 mg/dL (132-200); Creatinine (Component) 0.9 mg/dL (0.6-1.3); Estimated Creatinine Clearance 66.0 mL/min (>60); Glucose 142 mg/dL (74-106); HDL Cholesterol 40 mg/dL (40-60); LDL Cholesterol,Calculated 140 mg/dL (0-130); Osmolality,Calculated 285 (275-295); Potassium 3.0 mMol/L (3.4-5.1); Sodium 143 mMol/L (136-145); Thyroid Stimulating Hormone 2.86 uIU/mL (0.55-4.78); Triglycerides 115 mg/dL (30-150); eGFR > 60 See Note
[2025-07-04 06:24] LABS: Glucose Estimated Average 114 mg/dL (80-131); Hemoglobin A1C 5.6 % Hgb (4.8-6.0)
[2025-07-04] MEDS: ENOXAPARIN SOD INJ 40 MG/0.4 ML SYRINGE SC (08:32)
[2025-07-04] MEDS: CLOPIDOGREL BISULFATE 75 MG TABLET PO (08:32)
--- NOTE | 2025-07-04 13:39 | ESPR_ITS ---
Documentation for date of: 07/04/25 Subjective Subjective Interval history: Patient examined at bedside. Vitals are stable, labs significant for hypokalemia potassium 3.0. Repleted as needed. Risk stratification for stroke including A1c normal 5.6 TSH normal 2.86, cholesterol 203. Patient states that she is feeling much better since yesterday with resolution of symptoms. Further workup for stroke including MRI brain negative for any acute findings. Continue Plavix and statin while neuro recommendations are pending. Patient is currently homeless without source of income at this time. 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 Counseled on importance of polysubstance abuse cessation and offered resources for any aid. Physical therapy assessment and final neurology recommendations are pending. Anticipate discharge next 24 hours. Exam Vital Signs Temp Pulse Resp BP Pulse Ox O2 Del Method 97.6 F 69 21 H 107/67 97 Room Air 07/04/25 12:00 07/04/25 12:07/04/25 12:00 07/04/25 12:00 07/04/25 12:07/04/25 12:00 Narrative Exam General: Alert and oriented x3. No acute distress, cooperative HEENT: NCAT, No JVD noted. Mucosa moist. Pupils are equal and reactive to light bilaterally Cardiovascular: Normal S1 and S2. Regular rate and rhythm. Respiratory: Lungs are clear to auscultation bilaterally. No wheezing or crackles heard. Abdomen: Soft, nontender, not distended, normal bowel sounds. Skin: Warm to touch, dry, no rashes noted Musculoskeletal: No gross injuries. Able to move all 4 extremities. No pitting edema Neuro: Alert and oriented x3. No focal neuro deficits. Psych: Normal affect and mood Objective Labs 07/05/25 04:53 07/05/25 04:53 Labs: Laboratory Results - last 24 hr 07/03/25 07/04/25 07/04/25 22:24 00:41 04:41 WBC 10.9 8.6 RBC 4.19 4.15 Hgb 13.0 13.0 Hct 38.9 38.9 MCV 93 94 MCH 31.0 31.3 MCHC 33.4 33.4 RDW Std Deviation 41.9 43.3 Plt Count 323 266 D Neut % (Auto) 47 36 L Lymph % (Auto) 42 52 H [place] % (Auto) 8 9 Eos % (Auto) 2 3 Baso % (Auto) 1 1 Neut # (Auto) 5.1 3.1 Lymph # (Auto) 4.6 4.4 [place] # (Auto) 0.9 H 0.7 Eos # (Auto) 0.2 0.3 Baso # (Auto) 0.1 0.1 Immature Gran # (Auto) 0.05 H 0.02 H Absolute Nucleated RBC 0.00 0.00 Immature Gran % 1 H 0 Nucleated RBC % 0 0 PT 10.3 INR 0.9 APTT 26.2 Sodium 146 H 143 Potassium 3.4 3.0 L Chloride 106 105 Carbon Dioxide 29.3 27.0 Anion Gap 11 11 BUN 17 9 Creatinine 1.1 0.9 Estim Creat Clear Calc Not Performed. 66.0 eGFR > 60 > 60 BUN/Creatinine Ratio 15 10 L Glucose [address] Glu mg/dL 114 Hemoglobin A1c 5.6 Calculated Osmolality 293 285 Calcium 9.9 9.2 Corrected Calcium 9.9 Magnesium 2.0 Total Bilirubin 0.4 AST 30 ALT 28 Alkaline Phosphatase 65 Troponin I < 0.020 Total Protein 6.9 Albumin 4.6 Globulin 2.3 Albumin/Globulin Ratio 2.0 Triglycerides 115 Cholesterol 203 H LDL Cholesterol, Calc 140 H HDL Cholesterol 40 Cholesterol/HDL Ratio 5.1 TSH 2.86 Ur Collection Type Clean Catch Urine Color Lt-Yellow Urine Clarity Clear Urine pH 6.0 Ur Specific [place] 1.015 Urine Protein Trace Urine Glucose (UA) Negative Urine Ketones Negative Urine Blood Negative Urine Nitrite Negative Urine Bilirubin Negative Urine Urobilinogen (Auto) Negative Ur Leukocyte Esterase Positive Urine RBC 3 Urine WBC 47 H Ur Squamous Epith Cells 2 Urine Bacteria None Ur Culture Indicated? Yes Urine Opiates Screen Negative Urine Fentanyl Screen Negative Ur Barbiturates Screen Negative U Amphetamin/Meth Scrn Positive A U Benzodiazepines Scrn Negative U Cocaine Metab Screen Negative U Marijuana (THC) Screen Positive A HCG (Qual) Negative Quality Measures Quality Measures none Assessment & Plan Assessment Current Active Medications: Generic Name Dose Route Start Last Admin Trade Name Freq PRN Reason Stop Dose Admin Acetaminophen 650 mg 07/04/25 00:56 Acetaminophen 325 Mg Tablet PO 08/03/25 00:55 Q6H PRN Fever >101.5 Atorvastatin Calcium 40 mg 07/04/25 21:00 Atorvastatin Calcium 20 Mg Tablet PO 08/03/25 20:59 HS NAVEEN Clopidogrel Bisulfate 75 mg 07/04/25 09:00 07/04/25 08:32 Clopidogrel Bisulfate 75 Mg Tablet PO 08/03/25 08:59 75 mg QDAY NAVEEN Administration Enoxaparin Sodium 40 mg 07/04/25 09:00 07/04/25 08:32 Enoxaparin Sod Inj 40 Mg/0.4 Ml Syringe SC 07/18/25 08:59 40 mg QDAY NAVEEN Administration Hydralazine HCl 10 mg 07/04/25 01:03 Hydralazine Inj 20 Mg/Ml Vial IVP 08/03/25 01:02 Q4HR PRN SBP>220 Magnesium Hydroxide 30 ml 07/04/25 00:56 Milk Of Magnesia Susp 30 Ml Udc PO 08/03/25 00:55 QDAY PRN CONSTIPATION Protocol Ondansetron HCl 4 mg 07/03/25 22:26 Ondansetron Inj 2 Mg/Ml Inj 2 Ml IVP 08/02/25 22:25 Q4HR PRN NAUSEA OR VOMITING Plan 50-year-old female patient with PMHx of meth/cocaine use, and homelessness brought in by boyfriend for evaluation of fogginess and right lower extremity weakness for 6 hours, patient was admitted for stroke rule out per neurorecommendations. #LE weakness Less likely stroke as no evidence on imaging. Possibly TIA vs heat, drug use, dehydration. #Stroke-like symptoms Initially presenting with right lower extremity weakness and some confusion. She was brought in by her boyfriend. Patient is homeless and could have been dehydrated with long-term heat exposure causing this weakness. U tox also positive for methamphetamines and cocaine. MRI/CT/CTA of head and neck negative for mass, hemorrhage or stenosis. A1c normal 5.6 TSH normal 2.86, cholesterol 203. - In-house neurology recommendations pending ? Continue aspirin and Plavix ? Physical therapy assessment pending -Maintain glucose 140?180 and Avoid Hyperthermia (PRN Acetaminophen) # Polysubstance drug use #Methamphetamine use #Marijuana use #Tobacco use #Homeslessnes -Patient counseled extensively regarding recreational drug use. -Reports feeling ready to quit. -Referral to social scientist. -offered other sources of aid for quitting #Syphilis, unspecified Syphilis serology resulted reactive on 04/04/2025. She came to the ED and received penicillin G2 400,000 units IM injection. Was sent home with p.o. doxycycline 100 mg twice daily. Unaware patient fully completed course for discharge at that time. -Follow up outpatient to repeat titers Health maintenance: Dispo: tele for CVA rule out FEN: regular DVT prophylaxis: Enoxaparin 40 dily CODE STATUS: Full code The patient's management plan was discussed with my attending physician Dr. Teran. Jenifer Sykes, PGY-2 Attending Provider Attestation/Addendum I have examined the patient, reviewed labs and imaging findings, discussed the case with the resident(s), and reviewed entered orders. I agree with the plan of care as outlined in this note, with these additional summaries/recommendations: Patient seen at bedside. Patient admitted overnight for CVA rule out. Today at bedside she reports all her symptoms have resolved and no longer endorses right lower extremity weakness. Discussed that I would still like her to be seen by physical therapy. MRI brain showed no acute CVA. Symptoms likely related to drug intoxication versus transient ischemic attack. Patient was placed on Plavix overnight by teleneurology. Patient to be evaluated by in-house neurology and recommendations appreciated. Patient was counseled extensively on substance abuse. She currently reports she is homeless. Chest x-ray was suspicious for pneumonia although patient denies productive cough, shortness of breath, dyspnea, chest pain, fever/chills. We will monitor off antibiotics for now. Hypokalemia present today and replacement given. Repeat level in AM. Patient updated on the plan and in agreement. All questions answered to satisfaction. Please see residents note for additional details and management. Dr. Parul MD
--- NOTE | 2025-07-04 16:28 | PC.PT ---
PT eval only. Patient is I with transfers and ambulation with AD.
[2025-07-04] MEDS: ATORVASTATIN CALCIUM 20 MG TABLET 40 MG PO (20:17)
--- NOTE | 2025-07-04 23:49 | ESPR_ITS ---
Documentation for date of: 07/04/25 Subjective Subjective Interval history: Patient was seen in telemetry at the bedside, no new symptoms/similar symptoms of right LE weakness or slurred speech. Exam - Neurology Vital Signs Temp Pulse Resp BP Pulse Ox O2 Del Method 96.6 F L 66 12 109/71 98 Room Air 07/04/25 20:00 07/04/25 20:00 07/04/25 20:00 07/04/25 20:00 07/04/25 20:00 07/04/25 20:00 Narrative Exam GENERAL APPEARANCE: Well hydrated, well-nourished in no acute distress. HEENT: Normocephalic, atraumatic, extraocular movements intact. Pupils: Equal reacting to light and accommodation NECK: Supple, no JVD or bruits. CARDIOVASULAR: Heart: S1, S2 heard, regular without S3-S4 or murmur no rubs or gallops. LUNGS/CHEST: Clear to auscultation bilaterally. No rails, rhonchi, or wheezing. Normal inspection. ABDOMEN: Soft, nontender, with normal bowel sounds. No pulsatile masses. No rebound, rigidity, or guarding. Normal inspection and palpation. EXTREMITIES: Normal inspection and palpation. No edema, clubbing or cyanosis. SKIN: Warm and dry without rashes. Normal inspection. MUSCULOSKELETAL: No cervical, thoracic, lumbar or midline bony tenderness. Normal inspection. NEURO: Alert, awake and oriented x3. Cranial nerves: II through XII grossly intact. Speech and language: Normal with no dysarthria or dysphasia. Motor system: Tone and bulk: Normal: Strength: 5 out of 5 in all 4 extremities; No pronator drift noted. Deep tendon reflexes: 2+ bilaterally symmetrical. Plantar reflex: Downgoing bilaterally. Sensory system: Intact to all modalities of sensation bilaterally. Coordination: Intact to ezenli-wgvl-rhbln and hvzy-eeay-ftir test bilaterally. No ataxia, no dysmetria, or dysdiadochokinesia noted. No intention tremors noted. Gait: Normal. Toe, heel, tandem walk all are normal. Romberg: Negative. No signs of meningeal irritation noted. PSYCHIATRIC: Normal mood and affect. Objective Labs 07/05/25 04:53 07/04/25 04:41 Labs: Laboratory Results - last 24 hr 07/03/25 07/04/25 07/04/25 22:24 00:41 04:41 WBC 8.6 RBC 4.15 Hgb 13.0 Hct 38.9 MCV 94 MCH 31.3 MCHC 33.4 RDW Std Deviation 43.3 Plt Count 266 D Neut % (Auto) 36 L Lymph % (Auto) 52 H [place] % (Auto) 9 Eos % (Auto) 3 Baso % (Auto) 1 Neut # (Auto) 3.1 Lymph # (Auto) 4.4 [place] # (Auto) 0.7 Eos # (Auto) 0.3 Baso # (Auto) 0.1 Immature Gran # (Auto) 0.02 H Absolute Nucleated RBC 0.00 Immature Gran % 0 Nucleated RBC % 0 Sodium 143 Potassium 3.0 L Chloride 105 Carbon Dioxide 27.0 Anion Gap 11 BUN 9 Creatinine 0.9 Estim Creat Clear Calc 66.0 eGFR > 60 BUN/Creatinine Ratio 10 L Glucose [address] Glu mg/dL 114 Hemoglobin A1c 5.6 Calculated Osmolality 285 Calcium 9.2 Triglycerides 115 Cholesterol 203 H LDL Cholesterol, Calc 140 H HDL Cholesterol 40 Cholesterol/HDL Ratio 5.1 TSH 2.86 Ur Collection Type Clean Catch Urine Color Lt-Yellow Urine Clarity Clear Urine pH 6.0 Ur Specific [place] 1.015 Urine Protein Trace Urine Glucose (UA) Negative Urine Ketones Negative Urine Blood Negative Urine Nitrite Negative Urine Bilirubin Negative Urine Urobilinogen (Auto) Negative Ur Leukocyte Esterase Positive Urine RBC 3 Urine WBC 47 H Ur Squamous Epith Cells 2 Urine Bacteria None Ur Culture Indicated? Yes Urine Opiates Screen Negative Urine Fentanyl Screen Negative Ur Barbiturates Screen Negative U Amphetamin/Meth Scrn Positive A U Benzodiazepines Scrn Negative U Cocaine Metab Screen Negative U Marijuana (THC) Screen Positive A HCG (Qual) Negative Assessment & Plan Assessment and plan (1) Stroke-like symptoms: Status: Resolved Assessment and plan: Symptoms resolved and no recurrence reported. Reassurance given to the patient regarding the negative workup. Patient is stable for discharge from neurology standpoint on aspirin 81 mg and high intensity statin after the echo is done. Follow-up in 2 weeks. (2) Polysubstance abuse: Status: Chronic Assessment and plan: Advised drug cessation to prevent recurrence in the form of ischemic infarction/hemorrhage (3) Hyperlipidemia: Status: Acute Assessment and plan: Needs aggressive control to keep the LDL below 70 mg. Continue with atorvastatin 80 mg.
[2025-07-05] VITALS: BP 96/58; PULSE 60; PULSE 61; RESP 19; TEMP 35.9; O2SAT 96
[2025-07-05 04:00] VITALS: BP 107/71; PULSE 50; PULSE 58; RESP 14; TEMP 36.1; O2SAT 96
[2025-07-05 06:00] VITALS: BMI 22.1
[2025-07-05 06:07] LABS: Basophils # (Auto) 0.0 Thou/mm3 (0.0-0.2); Basophils % (Auto) 1 % (0-2.5); Eosinophils # (Auto) 0.2 Thou/mm3 (0.0-0.5); Eosinophils % (Auto) 3 % (0-10); Hematocrit 37.1 % (36.0-46.0); Hemoglobin 12.1 g/dL (12.0-16.0); Immature Granulocytes Auto 0.02 Thou/mm3 (0.00-0.00); Lymphocytes # (Auto) 2.7 Thou/mm3 (1.0-4.8); Lymphocytes % (Auto) 41 % (10-50); Mean Corpuscular HGB Conc 32.6 g/dl (31.0-37.0); Mean Corpuscular Hemoglobin 30.6 pg (25.0-35.0); Mean Corpuscular Volume 94 fL (80-100); Monocytes # (Auto) 0.5 Thou/mm3 (0.0-0.8); Monocytes % (Auto) 7 % (0-12); Neutrophils # (Auto) 3.1 Thou/mm3 (1.8-7.7); Neutrophils % (Auto) 47 % (37-80); Nucleated Red Blood Cell # 0.00 Thou/mm3 (0.00-0.00); Nucleated Red Blood Cell % 0 /100 WBC (0); Platelet Count 249 Thou/mm3 (140-440); RDW Standard Deviation 43.0 fL (36.4-46.3); Red Blood Count 3.96 Miln/mm3 (4.00-5.20); White Blood Count 6.4 Thou/mm3 (3.6-11.0)
[2025-07-05 06:32] LABS: Anion Gap 8 (7-16); BUN/Creatinine Ratio 18 Ratio (12-20); Blood Urea Nitrogen 11 mg/dL (9-23); Calcium 8.8 mg/dL (8.3-10.6); Carbon Dioxide 27.1 mMol/L (20.0-31.0); Chloride 106 mMol/L (98-107); Creatinine (Component) 0.6 mg/dL (0.6-1.3); Estimated Creatinine Clearance 99.0 mL/min (>60); Glucose 106 mg/dL (74-106); Osmolality,Calculated 280 (275-295); Potassium 3.8 mMol/L (3.4-5.1); Sodium 141 mMol/L (136-145); eGFR > 60 See Note
[2025-07-05 08:00] VITALS: BP 108/71; PULSE 55; PULSE 70; RESP 20; TEMP 36.2; O2SAT 96
[2025-07-05] MEDS: ENOXAPARIN SOD INJ 40 MG/0.4 ML SYRINGE SC (08:40)
[2025-07-05] MEDS: CLOPIDOGREL BISULFATE 75 MG TABLET PO (08:41)
--- NOTE | 2025-07-05 09:26 | PC.SS ---
Addendum entered by ANDRIA Lima 07/05/25 12:06: DME referral was also submitted to [facility]. Addendum entered by ANDRIA Lima 07/05/25 10:07: TWISTING MACHINE OPERATOR spoke to Dr. Teran who stated that patient may benefit from alf resources as she is currently unhoused. TWISTING MACHINE OPERATOR made contact with patient at bedside. Patient stated that she is homeless but is staying with her friend Amira who will be providing transportation. Patient confirmed that rollator walker could be delivered to the address on facesheet and confirmed contact number. TWISTING MACHINE OPERATOR notified patient that since it is the weekend the DME would not be processed until Sunday and insurance would need to approve it, which would occur Sunday as well, patient confirmed understanding. TWISTING MACHINE OPERATOR spoke to Lon at [facility] who stated that DME will be processed during the week as they are unable to do it over the weekend. TWISTING MACHINE OPERATOR confirmed that DME will be processed with insurance on Sunday. Original Note: Patient is a 50 year old female presenting to the hospital for right lower extremity weakness/ slurred. TWISTING MACHINE OPERATOR met with patient at bedside, role and reason was explained for visit. Patient confirmed demographic information and stated that she lives alone. In case she is unable to make medical decisions on her own she said Mac Humphrey, her friend, would make them PH: [phone]. Patient stated that she is unemployed, does not use DME, pharmacy is [facility]. Patient stated that she does not have PCP but she goes to [facility] when she is feeling sick and her last appointment was in April 2025. Patient stated that once she is medically clear she would like to return home and her friend Aileen will provide transportation. PCP: [facility] Decision maker: Mac Humphrey D/C: home
--- NOTE | 2025-07-05 09:44 | PD.RESDS ---
Planned Discharge Date 07/05/25 DS: Providers Provider Date of admission: 07/04/25 00:56 Primary care physician: Physician No Primary/Family Admitting Provider: Lucas Dawkins MD Attending Provider on Admission: Lucas Dawkins MD Consults: 07/03/25 22:26 Consult to Neurology / Tele-Neurology Routine Comment: Consulting Provider: [facility] 07/04/25 00:59 Referral Physical Therapy Routine Comment: Physician Instructions: 07/04/25 01:00 Referral Speech Therapy Routine Comment: 07/04/25 01:12 Consult to Neurology / Tele-Neurology Routine Comment: Consulting Provider: Gonzalo Velázquez Attending Provider on DC: Melody Velázquez MD Discharging Provider: Melody Velázquez MD DS: Diagnosis Problem List Completed Was Problem List Reviewed/Reconciled?: Yes Hospital Course Hospital Course Hospital course: Ms. Elias is a 50-year-old female patient with PMHx of meth/cocaine use, and homelessness came to the ED for fogginess and right lower extremity weakness admitted for further management on 07/03/25. Utox noted to be positive for methamphetamines and cocaine. MRI/CT/CTA of head and neck negative for any infarct, mass, hemorrhage or stenosis. A1c normal 5.6 TSH 2.86, and cholesterol 203. Patient's symptoms of RLE weakness and confusion had resolved within 24 hours of admission, and most likely had a TIA. Neurology recommended patient to be on either Aspirin or Plavix and a high-intensity statin at discharge. Patient was also supposed to get an echocardiogram, however had shared decision making with patient, and patient states she will strongly f/u with PCP for referral for echocardiogram and neurology for her TIA. Patient was also given resources for her polysubstance drug use and strongly encouraged to take her new medications prescribed and provided education on importance of cessation of her polysubstance use to improve her cardiovascular health and reduce her risk for further TIAs/strokes. Patient is to also follow up with her PCP on her repeat syphilis titers. Pt seen and examined at bedside. Pt denies any complaints. Pt is medically cleared to be discharged today with the following instructions: Please take your new medications: Plavix once daily and Atorvastatin 40mg HS Please see your PCP and neurology within 1-2 weeks. Please follow up with your PCP to see cardiology and get an echocardiogram. If your symptoms worsen, please return to the ED. Hospital discharge diagnoses treated during hospital stay: #TIA-resolved #Polysubstance drug use #Methamphetamine use #Marijuana use #Tobacco use #Homeslessness #Syphilis, unspecified-resolved Patient's plan and care discussed with my attending, Dr. Parul Velázquez MD PGY-3 Status at Discharge Cognitive/behavioral status at discharge: Stable Time Spent with Patient Time attestation: Total time spent providing and/or coordinating discharge services: 35 minutes Time spent: Greater than 30 minutes Exam Vital Signs Temp Pulse Resp BP Pulse Ox O2 Del Method 96.9 F 58 L 14 107/71 96 Room Air 07/05/25 04:00 07/05/25 04:00 07/05/25 04:00 07/05/25 04:00 07/05/25 04:00 07/05/25 04:00 Narrative Exam General: Alert and oriented x3. No acute distress, cooperative HEENT: NCAT, No JVD noted. Mucosa moist. Pupils are equal and reactive to light bilaterally Cardiovascular: Normal S1 and S2. Regular rate and rhythm. Respiratory: Lungs are clear to auscultation bilaterally. No wheezing or crackles heard. Abdomen: Soft, nontender, not distended, normal bowel sounds. Skin: Warm to touch, dry, no rashes noted Musculoskeletal: No gross injuries. Able to move all 4 extremities. No pitting edema Neuro: Alert and oriented x3. No focal neuro deficits. Psych: Normal affect and mood Discharge Plan Plan Patient Disposition: HOME (Self Care) Prescriptions/Referrals Prescriptions/Med Rec: New atorvastatin 40 mg tablet 40 mg PO HS 30 Days Qty: 30 0RF clopidogrel 75 mg Tablet 75 mg PO QDAY 30 Days Qty: 30 0RF Continued acetaminophen 500 mg capsule 1,000 mg PO Q8HR PRN (Reason: pain) Qty: 30 0RF Discontinued doxycycline hyclate 100 mg tablet 100 mg PO BID Qty: 14 0RF Referrals: No Primary/Family,Physician [Primary Care Provider] Gonzalo Velázquez MD [Physician, Neurology] Patient/Caregiver Discharge Instructions Other Discharge Activity Instructions:: Please take your new medications: Plavix once daily and Atorvastatin 40mg HS Please see your PCP and neurology within 1-2 weeks. Please follow up with your PCP to see cardiology and get an echocardiogram. If your symptoms worsen, please return to the ED. Education Materials: Symptoms of Stroke, Risk Factors for Stroke, Stroke Regaining Movement, Stroke Prevention Activity, ED Drug Abuse, ED Symptoms With Uncertain Cause Print Language: [place]ic Stand Alone Forms: Luna Award Info., Patient Portal Info Letter Discharge Order Discharge Orders: Discharge (Routine); Ordered 07/05/25 Ordered By: Zhou Teran Quality Discharge Quality Measures VTE prophylaxis MD Attestestation MD Attestation I have examined the patient, reviewed labs and imaging findings, discussed the case with the resident(s), and reviewed entered orders. I agree with the plan of care as outlined in this note. Time Spent: [address] Parul MD
[2025-07-05 12:00] VITALS: BP 111/71; PULSE 68; RESP 17; TEMP 36.4; O2SAT 97
[2025-07-05 14:54] VITALS: BP 113/83; PULSE 80; RESP 16; TEMP 37.1; O2SAT 98
--- NOTE | 2025-07-05 15:02 | PC.SS ---
Rounding note: d/c order in, patient d/c home with friend.
== END 2025-07-05 14:50 | disposition home or self-care (01) ==
LOC: SERX 07-04 01:44 → S2NX 07-05 07:15 → SERHOLD 07-06 07:00 → S2NX 07-06 07:00
PROVIDERS: Nurse Practitioner Family; Admitting Provider Student in an Organized Health Care Education/Training Program; Emergency Provider Emergency Medicine; Visit Provider Student in an Organized Health Care Education/Training Program
DX: G45.9 Transient cerebral ischemic attack, unspecified (principal); F15.90 Other stimulant use, unspecified, uncomplicated; F12.90 Cannabis use, unspecified, uncomplicated; A53.9 Syphilis, unspecified; E87.6 Hypokalemia; Z59.00 Homelessness unspecified; F19.10 Other psychoactive substance abuse, uncomplicated; E78.5 Hyperlipidemia, unspecified; Z72.0 Tobacco use
CPT/HCPCS: 36415; 70450; 70496; 70498; 70551; 71045; 80048; 80053; 80061; 80307; 81001; 83036; 83735; 84443; 84484; 84703; 85025; 85610; 85730; 87086; 92610; 93005; 93306; 96372; 97162; 99285; A4649; G0378; J1650; Q9967; A9270